=== PATIENT | male | born 1990 | race Caucasian/White ===

== ENCOUNTER 2019-11-28 22:14 | Emergency (ER) | payer BC, SELFPAY ==
[2019-11-28 22:21] VITALS: BP 139/90; PULSE 86; RESP 16; TEMP 36.8; O2SAT 99
--- NOTE | 2019-11-28 22:25 | ED.GENADUL_ITS ---
Discharge Plan Disposition Patient Disposition: HOME Condition: Stable Discharge Details Chief Complaint: Laceration Clinical Impression: Laceration of left index finger Primary Care Provider: None,None ED Provider: Екатерина Kelly Home Meds and New Rx's Prescriptions: No Action No Known Home Meds RF: 0 Discharge Instructions Instructions: Finger Laceration (ED), Skin Adhesive Care (ED) Additional Instructions: Keep the splint on for the next 4 to 6 days. Tissue adhesive will slough off on its own. Return for any signs of infection including increased redness, swelling, drainage. Please take Tylenol or Ibuprofen with food every 4-6 hours as needed for pain and swelling. You were given a tetanus shot here in the department today. Follow up with primary care provider in 3-5 days. Return to ED sooner if any worsening or concerns. Increase oral fluids. Medical Decision Making 29-year-old male presents with a left index finger laceration to the dorsal surface which occurred approximately 1 hour prior to arrival while he was cutting some wood. He reports that he was holding a hand knife when it slipped and cut his finger. Approximately 2 cm in length to the dorsal aspect. He has full range of motion full flexion and extension noted to the digit. Distal sensation and circulation is intact. He reports tetanus shot is not up-to-date and requests receiving vaccine. Pain is mild to moderate in severity. No other complaints. 2240: Wound repaired with tissue adhesive patient instructed on home care use aluminum finger splint applied to keep digit straight allow for healing. Discussed strict return instructions including watching for signs of infection, verbalized understanding. Patient did receive a tetanus booster while in department. HPI General Mode of arrival: ambulatory . Date/Time Provider Initiated Documentation: 11/28/19 22:23 . Limitations to Documentation: no limitations . Information obtained by: patient . HPI Narrative: 29-year-old male presents with a left index finger laceration to the dorsal surface which occurred approximately 1 hour prior to arrival while he was cutting some wood. He reports that he was holding a hand knife when it slipped and cut his finger. Approximately 2 cm in length to the dorsal aspect. He has full range of motion full flexion and extension noted to the digit. Distal sensation and circulation is intact. He reports tetanus shot is not up-to-date and requests receiving vaccine. Pain is mild to moderate in severity. No other complaints. Related Data Home Medications Medication Instructions Recorded Confirmed Unknown [No Known Home Meds] 11/28/19 11/28/19 Allergies Allergy/AdvReac Type Severity Reaction Status Date / Time amoxicillin Allergy Unverified 11/28/19 22:27 General Stated Complaint: Laceration FOREST: 4 Review of Systems All systems reviewed & are unremarkable except as noted in HPI and below Integumentary/Breasts Skin/Breast: Reports wounds (Laceration left index finger) [facility] Social History Smoking/Tobacco Use Status: Never Alcohol Intake: current Alcohol Intake frequency: holidays/special occasions only Substance use type: does not use Do you feel safe at home: Yes Do you feel safe in your relationship?: Yes Exam Skin Trauma: laceration Extrem Left upper extremity: hand Details: laceration 2nd digit dorsal aspect central Hand/finger images: 1. Approximately 2 cm linear laceration noted to the dorsal aspect of his left index finger. Course Vital Signs Vital signs: Vital Signs Temperature 36.8 C 11/28/19 22:21 Pulse 86 11/28/19 22:21 Respiratory Rate 16 11/28/19 22:21 Blood Pressure 139/90 11/28/19 22:21 Pulse Oximetry 99 11/28/19 22:21 Temperature 36.8 C 11/28/19 22:21 Temperature Source Tympanic 11/28/19 22:21 Pulse 86 11/28/19 22:21 Respiratory Rate 16 11/28/19 22:21 Blood Pressure 139/90 11/28/19 22:21 Blood Pressure Position Sitting 11/28/19 22:21 Pulse Oximetry 99 11/28/19 22:21 Oxygen Delivery Method Room Air 11/28/19 22:21 Oxygen Flow Rate 0 11/28/19 22:21 Pain Level 1 11/28/19 22:21 Procedures Laceration Laceration 1: Site: hand (Left index) Side (If applicable): left Size (cm): 1.5 Description: linear Depth: simple, single layer Pre-repair: wound explored and deep structures intact Skin layer closed with: other (Tissue adhesive)
== END 2019-11-28 22:50 | disposition home or self-care (01) ==
PROVIDERS: Emergency Provider Registered Nurse Emergency
DX: S61.211A Laceration without foreign body of left index finger without damage to nail, initial encounter (principal); W26.0XXA Contact with knife, initial encounter
CPT/HCPCS: 12001; 90471

== ENCOUNTER 2024-11-15 15:27 | Emergency (ER) | payer BC, SELFPAY ==
[2024-11-15 15:36] VITALS: BP 132/89; PULSE 75; RESP 16; TEMP 37.2
--- NOTE | 2024-11-15 16:45 | DI.RAD_ITS ---
Exam(s) XR ANKLE RT COMPLETE XR TIB/FIB RT EXAM: XR TIB/FIB RT CLINICAL HISTORY: ankle injury. TECHNIQUE: 2D digital imaging was performed. Two views of the tibia and fibula. Three views of the ankle. COMPARISON: CR XR ANKLE RT COMPLETE from 11/15/2024 FINDINGS: BONES: No acute fracture is present. No bony destructive lesion is seen. Visualized portion of knee and ankle joints are unremarkable. Small spur at the Achilles insertion. SOFT TISSUE: Swelling around the malleoli. IMPRESSION: No acute abnormality. DATA REPOSITORY: RADIATION DOSE DELIVERED:
[2024-11-15 18:07] VITALS: BP 113/65; PULSE 72; RESP 16; TEMP 36.6; O2SAT 98
[2024-11-15] MEDS: Ibuprofen 600 MG TAB PO (18:07)
--- NOTE | 2024-11-15 22:35 | W.ED.GENAD ---
Discharge Plan Disposition Patient Disposition: Home Discharge Details Clinical Impression: Ankle sprain Primary Care Provider: None,None ED Provider: Angelique Pride Home Meds and New Rx's Prescriptions: No Action No Known Home Meds Discharge Instructions Instructions: Ankle Sprain ED Additional Instructions: Wear the boot for the next week Follow-up with orthopedics next week, they will likely call you to schedule an appointment ibuprofen for pain elevate, ice Weightbearing with boot as tolerated Please return with new or worsening complaints Referrals: Pranav Schaefer MD [ [facility] STAFF PHYSICIAN, Orthopaedic Surgical] - 1 week HPI General Date/Time Provider Initiated Documentation: 11/15/24 15:47. HPI Narrative: 34-year-old male presents with reported injury to his right ankle. He fell approximately 6 feet from a ladder landing directly on his right foot. Denies any left ankle tenderness denies any head injury or back pain. Denies strength or sensation changes denies any abdominal pain or hip pain. Related Data Home Medications ?Medication ?Instructions ?Recorded ?Confirmed Unknown [No Known Home Meds] 11/28/19 11/15/24 Allergies Allergy/AdvReac Type Severity Reaction Status Date / Time amoxicillin Allergy Severe Anaphylaxis Unverified 11/15/24 15:40 General Stated Complaint: Orthopedic FOREST: 4 Exam Narrative Exam Narrative: Alert and oriented no acute distress GCS 15 no cervical spine tenderness no hip tenderness no lumbar spine tenderness no tenderness to proximal tib-fib, tenderness and swelling over the lateral malleolus neurovascularly intact Course Vital Signs Vital signs: Vital Signs Temperature 37.2 C 11/15/24 15:36 Pulse 75 11/15/24 15:36 Respiratory Rate 16 11/15/24 15:36 Blood Pressure 132/89 11/15/24 15:36 Temperature 36.6 C 11/15/24 18:07 Temperature Source Oral 11/15/24 15:36 Pulse 72 11/15/24 18:07 Respiratory Rate 16 11/15/24 18:07 Blood Pressure 113/65 11/15/24 18:07 Blood Pressure Position Sitting 11/15/24 15:36 Pulse Oximetry 98 11/15/24 18:07 Oxygen Delivery Method Room Air 11/15/24 15:36 Oxygen Flow Rate 0 11/15/24 15:36 Pain Level 6 11/15/24 18:07 Medical Decision Making Results: X-ray of right ankle and tib-fib per radiology interpretation my review does not show evidence of acute abnormality radiology interpretation of my review This 34-year-old male presents after a fall onto right ankle just prior to arrival with pain to his right lateral malleolus he is neurovascularly intact he has no tenderness to his right knee his x-rays are reassuring He is placed in a tall boot but states that his ankle feels unstable so he is referred to orthopedics out of concern for significant sprain. Return precautions reviewed and patient expressed understanding [facility] All Active Problems (Updated 11/15/24 @ 17:58 by JASMINE Heller) Ankle sprain (Acute) Social History Smoking/Tobacco Use Status: Never Smoking risk assessment performed?: Yes Alcohol Intake: current Alcohol Intake frequency: holidays/special occasions only Drug use: Never Substance use type: does not use Do you feel safe at home: Yes Do you feel safe in your relationship?: Yes
--- NOTE | 2024-11-17 16:00 | NUR.NOTE ---
Accessed Pt chart to print a face sheet for the [facility] paperwork
== END 2024-11-15 18:07 | disposition home or self-care (01) ==
PROVIDERS: Emergency Provider Physician Assistant
DX: S93.401A Sprain of unspecified ligament of right ankle, initial encounter (principal); W11.XXXA Fall on and from ladder, initial encounter
CPT/HCPCS: 99284; 99283; 29515; 73590; 73610